=== PATIENT | female | born 1975 | race Caucasian/White ===

== ENCOUNTER 2020-01-03 08:23 | Emergency (ER) | payer OTHER ==
[~2020-01-03] VITALS: Ht 154.9 cm; Wt 86.2 kg
[~2020-01-03 08:23] MED LIST: CARAFATE1 G; CLARITIN10 MG PO; DICLOFENAC SODI50 MG PO; FOLIC ACID0.4 MG PO; MEDROLPACK PO; NON; PRENATAL 1 PL1 UDTAB PO; PROZAC20 MG; RESTONE CAPSUL1 EACH; ZANTAC300 MG
[2020-01-03] MEDS ORDERED: NORFLEX100MG PO (11:38)
[2020-01-03] MEDS ORDERED: KETO10TA2 PO (11:38)
[2020-01-03] MEDS ORDERED: B-122500 MCG SL (12:13)
== END 2020-01-03 12:21 | disposition home or self-care (01) ==
LOC: ER 08:23
DX: M25.532 Pain in left wrist (principal)

== ENCOUNTER 2020-06-29 09:45 | Inpatient (IN) | payer OTHER ==
[~2020-06-29] VITALS: Ht 154.9 cm; Wt 88.5 kg
[~2020-06-29 09:45] MED LIST changes: +B-122500 MCG SL; +KETO10TA2 PO; +NORFLEX100MG PO
== END 2020-07-08 15:24 | disposition home or self-care (01) | DRG 743 ==
LOC: SURH 07-05 07:00 → O/R 07-05 11:46 → OB/GYN 07-05 11:46
PROVIDERS: ADMIT Obstetrics & Gynecology; ATTEND Obstetrics & Gynecology
PROC: 0UN20ZZ Release Bilateral Ovaries, Open Approach (ICD-10-PCS; 2020-07-05)
PROC: 0UB70ZZ Excision of Bilateral Fallopian Tubes, Open Approach (ICD-10-PCS; 2020-07-05)
PROC: 0UT90ZZ Resection of Uterus, Open Approach (ICD-10-PCS; principal; 2020-07-05 07:00)
DX: D25.1 Intramural leiomyoma of uterus (principal); D25.0 Submucous leiomyoma of uterus; D25.2 Subserosal leiomyoma of uterus; N99.4 Postprocedural pelvic peritoneal adhesions; N80.0 Endometriosis of uterus; N94.6 Dysmenorrhea, unspecified; N93.8 Other specified abnormal uterine and vaginal bleeding

== ENCOUNTER 2023-05-17 14:01 | Emergency (ER) | payer OTHER ==
[~2023-05-17] VITALS: Ht 154.9 cm; Wt 94.3 kg
== END 2023-05-17 16:34 | disposition home or self-care (01) ==
LOC: ER 14:02
DX: J06.9 Acute upper respiratory infection, unspecified (principal); Z88.0 Allergy status to penicillin; Z88.8 Allergy status to other drugs, medicaments and biological substances